=== PATIENT | female | born 1970 | race Caucasian/White ===

== ENCOUNTER 2020-06-05 15:52 | Emergency (ER) | payer SELFPAY ==
[2020-06-05 16:09] VITALS: BP 178/91; PULSE 99
[2020-06-05 16:10] VITALS: O2SAT 98
--- NOTE | 2020-06-05 16:17 | ERPHSYRPT ---
- History of Present Illness Time Seen by Provider: 06/05/20 15:54 Source: patient Exam Limitations: no limitations Patient Subjective Stated Complaint: Rash Triage Nursing Assessment: Patient ambulated back to ED and transferred self to bed. Patient A+O X3. Patient's skin pink, warm and dry. Patient complains of rash to right side of abdomen. Patient states the pain stated yesterday then the rash started today. Patient has rash with tenderness 5/10. No pustules or blisters noted. Patient states she has a hx of shingles. Physician History: Patient is here with left-sided flank pain. Patient states that she has a history of shingles. States it feels similar. States the pain started yesterday. Patient has no rash yet. She does have some slight discoloration of her left flank in the dermatome pattern. However, no lesions, vesicles. Patient states that she does not have a shingles shot this year. Patient states that she is visiting from [place] for her father's yesterday. She states that she has no primary care physician and [facility]. Timing/Duration: day(s) Severity: moderate Modifying Factors: Improves With: nothing Associated Symptoms: denies symptoms Allergies/Adverse Reactions: tramadol [From [facility]] Allergy (Verified 06/05/20 16:01) Hx Influenza Vaccination/Date Given: Yes Hx Pneumococcal Vaccination/Date Given: No Immunizations Up to Date: Yes Travel Risk - International Travel Have you traveled outside of the country in past 3 weeks: No - Coronavirus Screening Are you exhibiting any of the following symptoms?: No Close contact with a COVID-19 positive Pt in past 14-21 Days: No - Review of Systems Constitutional: No Fever, No Chills Eyes: No Symptoms Ears, Nose, & Throat: No Symptoms Respiratory: No Cough, No Dyspnea Cardiac: No Chest Pain, No Edema, No Syncope Abdominal/Gastrointestinal: No Abdominal Pain, No Nausea, No Vomiting, No Diarrhea Genitourinary Symptoms: No Dysuria Musculoskeletal: No Back Pain, No Neck Pain Skin: Other (Left rash and flank pain), No Rash Neurological: No Dizziness, No Focal Weakness, No Sensory Changes Psychological: No Symptoms Endocrine: No Symptoms All Other Systems: Reviewed and Negative - Past Medical History Pertinent Past Medical History: No Neurological History: No Pertinent History ENT History: No Pertinent History Cardiac History: No Pertinent History Respiratory History: No Pertinent History Endocrine Medical History: No Pertinent History Musculoskeletal History: No Pertinent History GI Medical History: No Pertinent History History: No Pertinent History Psycho-Social History: No Pertinent History Female Reproductive Disorders: No Pertinent History Other Medical History: Hx of shingles, kidney stone - Past Surgical History Past Surgical History: Yes Neuro Surgical History: No Pertinent History Cardiac: No Pertinent History Respiratory: No Pertinent History Gastrointestinal: No Pertinent History, Other Musculoskeletal: Other Female Surgical History: Hysterectomy Other Surgical History: Small bowel obstruction, Right achilles repair - Social History Smoking Status: Never smoker Exposure to second hand smoke: No Drug Use: none Patient Lives Alone: No - Female History Hx Last Menstrual Period: hysterectomy Hx Now: No - Nursing Vital Signs Nursing Vital Signs: Initial Vital Signs Temperature 98.4 F 06/05/20 16:01 Pulse Rate 99 H 06/05/20 16:01 Respiratory Rate 19 06/05/20 16:01 Blood Pressure 178/91 06/05/20 16:01 O2 Sat by Pulse Oximetry 100 06/05/20 16:01 Pain Scale Pain Intensity 5 - Physical Exam General Appearance: no apparent distress, alert Eye Exam: PERRL/EOMI, eyes nml inspection Ears, Nose, Throat Exam: normal ENT inspection, TMs normal, pharynx normal, moist mucous membranes Neck Exam: normal inspection, non-tender, supple, full range of motion Respiratory Exam: normal breath sounds, lungs clear, No respiratory distress Cardiovascular Exam: regular rate/rhythm, normal heart sounds, normal peripheral pulses Gastrointestinal/Abdomen Exam: soft, normal bowel sounds, No tenderness, No mass Back Exam: normal inspection, normal range of motion, No CVA tenderness, No vertebral tenderness Extremity Exam: normal inspection, normal range of motion, pelvis stable Neurologic Exam: alert, oriented x 3, cooperative, normal mood/affect, nml cerebellar function, nml station & gait, sensation nml, No motor deficits Skin Exam: normal color, warm, dry, No rash Lymphatic Exam: No adenopathy SpO2: 98 Comments: 06/05/20 17:34 Patient has slight left discoloration of skin over the left flank. No vesicles, obvious tenderness to skin palpation. No overlying skin changes outside of the rash. No obvious deformity, sensation intact, 2+ capillary refill, 2 point tactile discrimination intact. 5 out of 5 strength. Full range of motion without pain. Compartments are soft, nontender. Overlying skin shows no tenting, bruising, ecchymosis. - Course Nursing assessment & vital signs reviewed: Yes - Progress Progress: improved Progress Note: 06/05/20 17:34 On my exam no obvious signs of shingles yet outside of history. Will give patient acyclovir and prednisone. I also offered to Flexeril and Toradol to the patient. Patient stated that those pain medications were not strong enough. She did request something stronger. Unfortunately, we are unable to verify patient's name and date of her today. 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 Therefore we are not able to use the [place] prescription monitoring system to verify that we could give her narcotics go home with. However, I did state patient could use prednisone and acyclovir for the next 24 hours. If her pain increases or changes she can come back here at that point time we can better evaluate her pain and to see if this is shingles or not. Patient declined all other testing. She declined EKG x-rays or other imaging. At this point will discharge patient home. Counseled pt/family regarding: diagnosis, need for follow-up - Departure Departure Disposition: Home Clinical Impression: Shingles Condition: Good Critical Care Time: No Referrals: DOCTOR,NO FAMILY [Primary Care Provider] - Instructions: Shingles (DC) Additional Instructions: Return here for new or changing symptoms. Prescriptions: Prednisone 10 mg [Deltasone 10 mg] 60 mg PO DAILY 5 Days #15 tablet Acyclovir 800 mg [Zovirax 800 mg] 800 mg PO 5XD 10 Days #50 tablet
== END 2020-06-05 16:21 | disposition home or self-care (01) ==
LOC: ED 15:52
DX: B02.9 Zoster without complications (principal); R10.9 Unspecified abdominal pain; Z86.19 Personal history of other infectious and parasitic diseases
CPT/HCPCS: 99283